=== PATIENT | female | born 1935 | race American Indian/Alaskan Native ===

== ENCOUNTER 2018-01-11 09:26 | Outpatient (CLI) | payer MEDICARE | END 2018-01-11 09:27 | disposition home or self-care (01) | LOC: SPVWC 09:26 | PROVIDERS: ATTEND Internal Medicine Hematology | DX: M79.661 Pain in right lower leg (principal); M79.662 Pain in left lower leg; M79.89 Other specified soft tissue disorders | CPT/HCPCS: 93970 ==